=== PATIENT | male | born 1955 | race Caucasian/White ===

== ENCOUNTER 2021-04-17 08:53 | Emergency (ER) | payer MEDICARE, SELFPAY ==
[2021-04-17] VITALS (12 sets, daily range): BP systolic 118–174; BP diastolic 59–128; PULSE 73–104; RESP 10–31; TEMP 36.3; O2SAT 99–100
--- NOTE | ~2021-04-17 | XR_ITS ---
XR chest 2V DATE: 04/17/2021 09:38 INDICATION: Seizure TECHNIQUE: PA and lateral views COMPARISON: None FINDINGS: Normal heart size. No hilar or mediastinal enlargement. No pulmonary infiltrate or consolidation, pleural effusion or pulmonary vascular congestion or pneumo thorax. Osteopenia. IMPRESSION: No active cardiopulmonary disease Reviewed, dictated and finalized at [facility]. CAL SCREENER
--- NOTE | ~2021-04-17 | CT_ITS ---
EXAMINATION: CT brain wo con DATE: 04/17/2021 09:31 INDICATION: Seizure TECHNIQUE: Computed tomography (CT) of the head was performed without intravenous contrast. The mA wa s adjusted according to patient size. Iterative reconstruction technique was employed. Exam dose: 60 5.33 mGy-cm total exam DLP. COMPARISON: None FINDINGS: There is moderately prominent cerebral and cerebellar volume loss. No intracranial mass les ion or hemorrhage or cerebrovascular accident is evident. No midline shift or mass effect. Bilateral carotid siphon internal carotid artery calcifications. There is nonspecific diminished atte nuation of the cerebral white matter, likely due to chronic small vessel ischemic changes. No subdural or epidural hematoma. No fracture or bone destruction of the cranial vault. Included paranasal sinuses and mastoid air cell s are unremarkable. IMPRESSION: Cerebral atherosclerosis and chronic small vessel ischemic changes of the cerebral white matter No acute intracranial finding Reviewed, dictated and finalized at [facility]. Reviewed, dictated and finalized at location [facility]. F CLIENT OFFICER
--- NOTE | 2021-04-17 09:00 | ECG_ITS ---
Measurements Intervals [place] Rate: 102 P: 43 WI: 159 QRS: 19 QRSD: 97 T: 33 QT: 347 QTc: 454 Interpretive Statements SINUS TACHYCARDIA POSSIBLE LEFT ATRIAL ENLARGEMENT EARLY PRECORDIAL R/S TRANSITION BORDERLINE ST ABNORMALITY- ANTEROLATERAL LEADS ABNORMAL ECG Electronically Signed On 04-19-2021 13:43:34 [employer] by Tani Luke D.O.
[2021-04-17 09:08] LABS: Glucose Point of Care 101 mg/dl (65-105)
[2021-04-17 09:23] LABS: Basophils Absolute Auto 0.1 K/mm3 (0.0-0.1); Basophils Percent Auto 1.4 % (0.2-1.2); Eosinophils Absolute Auto 0.3 K/mm3 (0-0.3); Eosinophils Percent Auto 3.6 % (0-4.4); Hematocrit 46.9 % (42.0-52.0); Immature Granulocyte Absolute 0.05 K/mm3 (0.00-0.031); Immature Granulocyte Percent A 0.5 % (0-0.5); Lymphocytes Absolute Auto 2.11 K/mm3 (0.9-3.2); Lymphocytes Percent Auto 22.8 % (18.3-44.2); Mean Corpuscular HGB Conc 34.1 g/dl (32-36); Mean Corpuscular Hemoglobin 30.8 pg (26-34); Mean Corpuscular Volume 90.4 fl (80-100); Mean Platelet Volume 11.3 fl (7.4-10.4); Monocytes Percent Auto 10.4 % (2.6-8.5); Neutrophils Absolute Auto 5.7 K/mm3 (1.3-6.7); Neutrophils Percent Auto 61.3 % (45.5-73.1); Platelet Count Result 205 k/mm3 (150-375); Red Blood Count 5.19 M/mm3 (4.6-6.20); Red Cell Distribution Width 13.3 % (11.5-14.5); White Blood Count 9.2 K/mm3 (4.5-10.0)
[2021-04-17 09:36] LABS: Ethanol < 10 mg/dL (<10)
[2021-04-17 09:41] LABS: Albumin Level 4.1 g/dL (3.5-5.1); Alkaline Phosphatase 54 U/L (38-126); Anion Gap 17 mmol/L (8-16); Aspartate Amino Transferase 29 U/L (17-59); Bilirubin,Total 0.5 mg/dL (0.2-1.3); Blood Urea Nitrogen 18 mg/dL (9-20); Calcium 9.4 mg/dL (8.4-10.2); Carbon Dioxide 15 mmol/L (22-30); Chloride 108 mmol/L (98-107); Estimated CRCL calculation 50 ml/min; Estimated Glomerular Filt Rate 55; Glucose 119 mg/dL (65-110); Potassium 3.4 mmol/L (3.4-5.0); Sodium 140 mmol/L (137-145)
[2021-04-17 09:44] LABS: Alanine Aminotransferase 31 U/L (4-50)
--- NOTE | 2021-04-17 10:24 | ED.SEIZURE ---
HPI - Seizure General Chief Complaint: Seizure Stated Complaint: Seizure Time Seen by Provider: 04/17/21 08:54 History of Present Illness HPI Narrative: Patient is a 65-year-old male who presents ER with seizure. He was at a local [employer] [place] when he had a seizure witnessed by his friend. Patient loss of urine. Patient reports history of seizure in the past but was just released and has not been on medication for it. There occurred 1 time about 6 months ago. Denies alcohol abuse. No fevers or chills or sweats. No pain at this time. Patient originally postictal for EMS. Seizure History: Yes Related Data Allergies Allergy/AdvReac Type Severity Reaction Status Date / Time No Known Allergies Allergy Verified 04/17/21 09:01 Review of Systems Review of Systems: All systems reviewed & are unremarkable except as noted in HPI and below Constitutional: Constitutional: Denies chills, Denies fever(s) and Denies weakness ENT: Denies nasal congestion and Denies sore throat Cardiovascular: Cardiovascular: Denies chest pain and Denies radiating jaw, neck or arm pain Respiratory: Respiratory: Denies cough and Denies dyspnea Gastrointestinal: Gastrointestinal: Denies abdominal pain, Denies nausea and Denies vomiting Neurologic: Denies dizziness, Denies headache(s), Denies focal weakness and Denies numbness Comments: Seizure PMFSH Past Medical History Medical History (Updated 04/17/21 @ 13:20 by Ean Still MD) Hyperlipidemia Seizure Surgical History Surgical History (Updated 04/17/21 @ 10:30 by Ean Still MD) No pertinent past surgical history Social History Social History (Updated 04/17/21 @ 10:30 by Ean Still MD) Smoking status: Never smoker Exam Narrative: GENERAL: Well-appearing, well-nourished, and in no acute distress. HEAD: Normocephalic, atraumatic. EYES: PERRL and EOMI. ENT: Mucous membranes moist. Bruising left tongue without laceration. CHEST: Clear to auscultation. No respiratory distress. HEART: Regular rate and rhythm. Normal peripheral pulses. ABDOMEN: Soft, nontender, nondistended. EXTREMITIES: Normal range of motion. No edema. SKIN: Warm, dry, no rash. NEURO: Alert and oriented x3. Clear speech. CNII-XII intact. Course Course Emergency Course: Patient informed of results. Troponin negative. Discussed case with Dr. Frost patient's primary care physician. Patient will be given a bolus of Keppra and then started on 500 mg twice a day. He has a equipment driver to take him home. He has been educated not to operate a motor vehicle. She will arrange follow-up with neurology Vital Signs Vital signs: Vital Signs Temperature 97.3 F L 04/17/21 08:56 Pulse Rate 104 H 04/17/21 08:56 Respiratory Rate 24 H 04/17/21 08:56 Blood Pressure 156/84 H 04/17/21 08:56 Pulse Oximetry 100 04/17/21 08:56 Temperature 97.3 F L 04/17/21 08:56 Pulse Rate 76 04/17/21 09:57 Respiratory Rate 12 04/17/21 09:57 Blood Pressure 145/59 H 04/17/21 09:57 Pulse Oximetry 100 04/17/21 09:57 MDM - Seizure Lab Data Result diagrams: 04/17/21 09:19 04/17/21 09:19 Labs: Lab Results 04/17/21 04/17/21 04/17/21 Range/Units 09:05 09:17 09:19 WBC 9.2 (4.5-10.0) K/mm3 RBC 5.19 (4.6-6.20) M/mm3 Hgb 16.0 (14.0-18.0) g/dL Hct 46.9 (42.0-52.0) % MCV 90.4 (80-100) fl MCH 30.8 (26-34) pg MCHC 34.1 (32-36) g/dl RDW 13.3 (11.5-14.5) % Plt Count 205 (150-375) k/mm3 MPV 11.3 H (7.4-10.4) fl Immature Gran % (Auto) 0.5 (0-0.5) % Neut % (Auto) 61.3 (45.5-73.1) % Lymph % (Auto) 22.8 (18.3-44.2) % Owen % (Auto) 10.4 H (2.6-8.5) % Eos % (Auto) 3.6 (0-4.4) % Baso % (Auto) 1.4 H (0.2-1.2) % Lymph # (Auto) 2.11 (0.9-3.2) K/mm3 Owen # (Auto) 1.0 H (0.1-0.6) K/mm3 Eos # (Auto) 0.3 (0-0.3) K/mm3 Baso # (Auto) 0.1 (0.0-0.1) K/mm3 Abs Immat Gran (auto)
[2021-04-17 10:32] LABS: Add Urine Microscopic? YES; Amphetamine Screen Urine Negative (Negative); Appearance Urine Clear (Clear); Barbiturate Screen Urine Negative (Negative); Benzodiazepines Screen Urine Negative (Negative); Bilirubin Urine Negative (Negative); Blood Urine Negative (Negative); Cannabinoid Screen Urine Negative (Negative); Cocaine Screen Urine Negative (Negative); Color Urine Yellow (Yellow); Glucose Urine UA 1+ mg/dL (Negative); Ketones Urine Negative (Negative); Leukocyte Esterase Ur Negative LEU/UL (Negative); Methadone Screen Urine Negative (Negative); Mucus Urine Rare /lpf; Nitrate Urine Negative (Negative); Opiate Screen Urine Negative (Negative); Phencyclidine Screen Urine Negative (Negative); Protein Urine 1+ mg/dL (Negative); RBC Urine 0-2 /hpf (0-2); Specific Grav Ur 1.023 (1.001-1.035); Squamous Epithelial Cell Urine Rare /hpf (Few); Urobilinogen Urine Negative mg/dL (<2.0); WBC Urine 0-3 /hpf
--- NOTE | 2021-04-17 11:04 | PC.NURSE ---
patient's victor manuel called [phone]
[2021-04-17 12:44] LABS: Troponin I < 0.012 ng/mL (0.000-0.034)
[2021-04-17] MEDS: levETIRAcetam 1000MG/NACL100ML 1,000 MG/100 ML BAG 400 MG IVPB (13:35)
== END 2021-04-17 13:05 | disposition home or self-care (01) ==
PROVIDERS: Emergency Provider Emergency Medicine
DX: R56.9 Unspecified convulsions (principal); E78.5 Hyperlipidemia, unspecified; R00.0 Tachycardia, unspecified; R94.31 Abnormal electrocardiogram [ECG] [EKG]
CPT/HCPCS: 36415; 70450; 71046; 80053; 80307; 81001; 82948; 84484; 85025; 93005; 96374; 99284; J1953